=== PATIENT | male | born 1985 | race Caucasian/White ===

== ENCOUNTER 2016-08-26 21:32 | Emergency (ER) | payer MEDICAID, OTHER ==
[~2016-08-26] VITALS: Ht 175.3 cm; Wt 84.0 kg
[~2016-08-26 21:32] MED LIST: CLIN-73 PO; TRAM50TA2 PO
[2016-08-26 21:35] VITALS: Ht 175.3 cm; Wt 84.0 kg
[2016-08-26] MEDS ORDERED: KETOROLAC 30 MG INJ IV STA (22:16)
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
[2016-08-26] MEDS ORDERED: SOD CHLORIDE 0.9% 1,000 ML IV ONE (22:30)
[2016-08-26 23:04] LABS: ADD SCAN DIFF NO
[2016-08-26 23:08] LABS: BASOPHILS % 0.3 % (0.0-2.0); EOSINOPHILS # 0.1 10^3/ul (0.0-0.5); EOSINOPHILS % 1.5 % (0.0-7.0); HEMATOCRIT 38.6 % (42.0-52.0); HEMOGLOBIN 12.8 g/dl (14.0-18.0); LYMPHOCYTES % 33.8 % (15.0-51.0); MEAN CORPUSCULAR HGB CONC 33.2 g/dl (32.0-37.0); MEAN CORPUSCULAR VOLUME 90.4 fl (82.0-101.0); MEAN PLATELET VOLUME 9.4 fl (7.4-10.4); MONOCYTE # 0.9 10^3/ul (0.3-0.9); MONOCYTES % 15.1 % (0.0-11.0); NEUTROPHIL # 2.9 10^3/ul (1.6-7.5); NEUTROPHILS % 49.1 % (39.0-77.0); PLATELET COUNT 238 10^3/UL (140-415); RED BLOOD COUNT 4.27 10^6/ul (4.70-6.10); RED CELL DISTRIBUTION WIDTH 13.2 % (11.5-14.5); WHITE BLOOD COUNT 5.8 10^3/ul (4.8-10.8)
[2016-08-26] MEDS ORDERED: IOHEXOL 300MG/ML 150 ML BTL ONE (23:25)
[2016-08-26] MEDS ORDERED: SOD CHLORIDE 0.9% 100 ML ONE (23:25)
[2016-08-26 23:33] LABS: ALBUMIN 4.1 g/dl (3.3-4.9); ALBUMIN/GLOBULIN RATIO 1.24; BILIRUBIN,INDIRECT 0.9 mg/dl (0-1.1); BILIRUBIN,TOTAL 0.9 mg/dl (0.2-1.3); CALCIUM 8.7 mg/dl (8.4-10.2); CREATININE 0.92 mg/dl (0.61-1.24); POTASSIUM 3.6 mmol/L (3.5-5.1); TOTAL PROTEIN 7.4 g/dl (6.1-8.1)
--- NOTE | 2016-08-27 01:12 | RADRPT ---
PROCEDURE: CT orbits with contrast. CLINICAL INDICATION: Left periorbital swelling TECHNIQUE: CT scan of the orbits was performed on a multidetector scanner. Contiguous axial image s were obtained following the uncomplicated intravenous administration of 100 cc of Omnipaque-300. No complications occurred. The exam CTDlvol = 54 mGy and DLP = 920 mGy-cm. One of the following 3 dose reduction techniques were used: Automated exposure control; adjustment of the mA and/or kV acco rding to patient size; or use of iterative reconstruction technique. COMPARISON: None available. FINDINGS: There is left facial, periorbital and frontal subcutaneous infiltration and enhancement with overlyi ng cutaneous thickening compatible with a cellulitis. At the inferior lateral aspect of the left or bit overlying the anterior aspect left zygomatic arch, there is a focal subcutaneous soft tissue den sity with a 7 x 7.6 cm central hypodensity consistent with a small abscess. Abscess extends to the cutaneous surface. There is no underlying foreign body or bony erosion. There are no fractures or erosions. The orbits are unremarkable. The globes and intra orbital contents are intact. There i s no infiltration or mass within the intraorbital fat or retroconal space. Extraocular muscles and optic nerve sheath complex are unremarkable. Superior ophthalmic veins are normal in caliber. The lara of the orbits are intact. There is an air-fluid level in the right maxillary sinus. There is left maxillary sinus mucosal thickening. The parotid glands unremarkable. The nasal and oropharynx are unremarkable. Bones are unremarkable. IMPRESSION: Left facial, periorbital frontal cellulitis. Focal subcutaneous probable abscess at the inferior la teral aspect of the left orbit overlying the anterior left zygomatic arch. RPTAT: HMVK .Tong Craven MD, MD Date Time Electronically viewed and signed by .Tong Craven MD, MD on 08/27/2016 01:12 .K/
[2016-08-27] MEDS ORDERED: CLINDAMYCIN 600 MG/D5W (PMX) 50 ML IVPB SCH (01:30)
[2016-08-27] MEDS ORDERED: CLIN-73 PO (01:44)
[2016-08-27] MEDS ORDERED: IBUP-1542 PO (01:44)
[2016-08-27 02:35] VITALS: BP 117/71; PULSE 86; RESP 16; TEMP 97.6
== END 2016-08-27 02:38 | disposition home or self-care (01) ==
LOC: FTE 21:32
DX: L03.213 Periorbital cellulitis (principal); F17.210 Nicotine dependence, cigarettes, uncomplicated
CPT/HCPCS: 70480; 80053; 85025; 96374; 96375; J1885; J7030; Q9967; Z7502; Z7610

== ENCOUNTER 2016-09-28 21:12 | Emergency (ER) | payer MEDICAID, OTHER ==
[~2016-09-28] VITALS: Ht 172.7 cm; Wt 79.5 kg
[~2016-09-28 21:12] MED LIST changes: +IBUP-1542 PO
[2016-09-28 21:15] VITALS: Ht 172.7 cm; Wt 79.5 kg
[2016-09-28] MEDS ORDERED: ACET325T33 PO (23:27)
[2016-09-28] MEDS ORDERED: PENICILLIN G BENZ 2.4 MIL UNIT SYG IM ONE (23:30)
[2016-09-28] MEDS ORDERED: PENICILLIN G BENZ 1.2 MIL UNIT SYG IM SCH (23:45)
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
[2016-09-30 15:11] LABS: FLUORESCENT TREPONEMAL AB REACTIVE (NON-REACTIVE)
== END 2016-09-29 00:30 | disposition home or self-care (01) ==
LOC: FTE 21:12
DX: A57 Chancroid (principal); F17.210 Nicotine dependence, cigarettes, uncomplicated; W57.XXXA Bitten or stung by nonvenomous insect and other nonvenomous arthropods, initial encounter; Y92.9 Unspecified place or not applicable
CPT/HCPCS: 86703; 87285; 87591; J0561; 96372